=== PATIENT | male | born 1935 | race Caucasian/White ===

== ENCOUNTER 2021-11-21 12:45 | Emergency (ER) | payer MEDICARE, OTHER, SELFPAY ==
[2021-11-21] VITALS (7 sets, daily range): BP systolic 129–139; BP diastolic 60–71; PULSE 58–72; RESP 14–16; TEMP 36.5; O2SAT 97–100; BMI 22.2
--- NOTE | 2021-11-21 12:58 | DI.RAD.S_ITS ---
PROCEDURE: XR HIP W PEL IF DONE RT 2V INDICATIONS: fall with R hip pain TECHNIQUE: Two views of the right hip and AP view of the pelvis. COMPARISON: None. FINDINGS: Bones: Bilateral total hip arthroplasties. No fractures or dislocations. No suspicious bony lesions. The visualized pelvic ring appears intact. Soft tissues: No suspicious soft tissue calcifications or masses. IMPRESSION: No fracture demonstrated radiographically. Dictated by: Brandon Crandall M.D. on 11/21/2021 at 13:35 Approved by: Brandon Crandall M.D. on 11/21/2021 at 13:36
--- NOTE | 2021-11-21 12:59 | ED_ITS ---
HPI - Fall General Chief Complaint: Fall Stated Complaint: fell, can't put weight on right leg Time Seen by Provider: 11/21/21 12:52 History of Present Illness HPI Narrative: 86M nonsmoker with noncontributory medical history presents with family in the chief complaint of a ground level fall last night which resulted in a right hip injury. He states that he was walking outside in the dark with a flashlight in backing briefly disoriented and fell over onto his hip. He has some mild pain in his left knee as well but ambulating on his right leg causes significant pain. He denies any head neck or back pain. He has no chest pain or shortness of breath. Denies prodromal symptoms such as dizziness, weakness or lightheadedness. He has had no fever chills. His pain is worse with motion and ambulation and improves with rest. Review of Systems Review of Systems Narrative: GENERAL: Denies chills, fatigue, malaise, fever, sweats. HEENT: Denies sinus pain, ear pain, sore throat, difficulty swallowing, dizziness. RESPIRATORY: Denies dyspnea, cough, wheezing, hemoptysis, sputum. CARDIOVASCULAR: Denies chest pain, palpitations, orthopnea, edema, GASTROINTESTINAL: Denies nausea, vomiting, abdominal pain, diarrhea, constipation, melena. : Denies dysuria, frequency, incontinence, hematuria, urinary retention. MUSCULOSKELETAL: See HPI SKIN: Denies rash, skin lesions, or other NEUROLOGIC: Denies weakness, headache, numbness, change in speech, confusion, seizures, incoordination. PSYCHIATRIC: No concerning psychosocial issues. 12 point review of systems is negative except for those stated above Patient History Social History Smoking Status: Never smoker Exam Narrative Exam Narrative: GENERAL: [86 year old patient appears stated age. Well-developed patient, in mild distress. GCS 15 HEAD: Atraumatic. Normocephalic. EYES: Pupils equal round and reactive. Extraocular motions intact. No scleral icterus. No injection or drainage. ENT: Nose without bleeding, purulent drainage. Throat without erythema, tonsillar hypertrophy or exudate. Airway patent. NECK: Trachea midline. Non tender CARDIOVASCULAR: Regular rate and rhythm without murmurs, gallops, or rubs. RESPIRATORY: Clear to auscultation. Breath sounds equal bilaterally. No wheezes, rales, or rhonchi. GASTROINTESTINAL: Abdomen soft, non-tender, nondistended. EXTREMITIES: Pain on palpation of right lateral hip, worse with axial loading and internal and external rotation. No shortening or rotation, closed and neurovascularly intact. Minimal swelling and tenderness to palpation of left knee BACK: Nontender without deformity or crepitance. No flank tenderness. NEURO: AOx3. SKIN: No rash or erythema of visible areas Initial Vital Signs Initial Vital Signs: Vital Signs Temperature 97.7 F 11/21/21 13:01 Pulse Rate 64 11/21/21 13:01 Respiratory Rate 16 11/21/21 13:01 Blood Pressure 129/71 11/21/21 13:01 Pulse Oximetry 100 11/21/21 13:01 Course Orders Ordered: ED Orders 11/21/21 12:58 XR hip w pel if done RT 2V Stat 11/21/21 13:02 XR knee LT 3V Stat 11/21/21 13:40 CT pelvis wo con Stat Reevaluation(s) Reevaluation #1: Patient performs ambulation trial with a walker and does quite well upon completion of CT Vital Signs Vital signs: Vital Signs - 8 hr 11/21/21 13:01 11/21/21 13:35 11/21/21 14:02 Temperature 97.7 F Pulse Rate 64 60 72 Respiratory Rate 16 Blood Pressure 129/71 137/60 Pulse Oximetry 100 98 99 11/21/21 14:05 11/21/21 14:30 11/21/21 15:00 Temperature Pulse Rate 59 L 63 58 L Respiratory Rate Blood Pressure 137/60 Pulse Oximetry 98 98 99 MDM - Fall Imaging Data RIght Hip: Radiologist's Impression: [address] [address] XRay Report Signed Patient: Suman Sun MR#: [id number] : 1935 Acct:[id number] Age/Sex: 86 / M Date of Service: 11/21/21 Loc: ED Accession Number: [id number] ?? Procedure: XR hip w pel if done RT 2V Ordering Provider: Ezio Salazar D.O. PROCEDURE:? XR HIP W PEL IF DONE RT 2V ? INDICATIONS:? fall with R hip pain ? TECHNIQUE:? Two views of the right hip and AP view of the pelvis. ? COMPARISON:? None. ? FINDINGS:? ? Bones:? Bilateral total hip arthroplasties.? No fractures or dislocations.? No suspicious bony lesions.? The visualized pelvic ring appears intact.? ? Soft tissues:? No suspicious soft tissue calcifications or masses.? ? IMPRESSION:? No fracture demonstrated radiographically.? ? Dictated by: Brandon Crandall M.D. on 11/21/2021 at 13:35 ? ? Approved by: Brandon Crandall M.D. on 11/21/2021 at 13:36 ? Left Knee: Radiologist's Impression: [address] [address] XRay Report Signed Patient: Suman Sun MR#: [id number] : 1935 Acct:[id number] Age/Sex: 86 / M Date of Service: 11/21/21 Loc: ED Accession Number: [id number] ?? Procedure: XR knee LT 3V Ordering Provider: Ezio Salazar D.O. PROCEDURE:? XR KNEE LT 3V ? INDICATIONS:? fall with knee pain ? TECHNIQUE:? 3 views of the knee were acquired.? ? COMPARISON:? None. ? FINDINGS:? ? Bones:? No fractures or dislocations.? No suspicious bony lesions.? ? Soft tissues:? No joint effusion.? No suspicious soft tissue calcifications.? ? ? IMPRESSION:? No acute finding demonstrated. ? ? Dictated by: Brandon Crandall M.D. on 11/21/2021 at 13:35 ? ? Approved by: Brandon Crandall M.D. on 11/21/2021 at 13:35 ? CT scan - abdomen/pelvis: Radiologist's Impression: [address] [address] [address] Scan Report Signed Patient: Suman Sun MR#: [id number] : 1935 Acct:[id number] Age/Sex: 86 / M Date of Service: 11/21/21 Loc: ED Accession Number: [id number] ?? Procedure: CT pelvis wo con Ordering Provider: Ezio Salazar D.O. PROCEDURE:? CT PEL WO CON ? INDICATIONS:? fall with severe R Hip pain ? TECHNIQUE:? Noncontrast 3 mm axial sections acquired through the bony pelvis, with coronal and sagittal reformatting.? ? COMPARISON:? None. ? FINDINGS:? Streak artifact from bilateral total hip arthroplasties limits the evaluation.? Within this limitation, there is no definite evidence of fracture.? The hardware appears intact. ? ? IMPRESSION:? No acute finding. ? Dictated by: Brandon Crandall M.D. on 11/21/2021 at 14:44 ? ? Approved by: Brandon Crandall M.D. on 11/21/2021 at 14:46 ? MDM Narrative Medical decision making narrative: Patient had a mechanical ground level fall with isolated injuries to left knee and right hip. Exam of left knee is very reassuring x-ray shows no fracture dislocation or other injury. Right hip x-ray unremarkable, followed by CT which shows no fracture, dislocation, disruption of hardware. Patient's pain is well controlled and he is ambulating through the department with a walker. Return precautions given and questions answered to his apparent satisfaction Discharge Plan Departure Patient Disposition: Home Clinical Impression: Acute hip pain Instructions: How to Prevent Falls Activity Restrictions/Additional Instructions: *You have been diagnosed with [right hip pain. Your history and physical exam are very reassuring. X-ray and CT scan would suggest no fracture, dislocation or disruption of hardware. *What to do: *Please continue to take your regular medications as directed. [ ] New medication prescriptions sent to your pharmacy: [ ] [ ] New medication written as a paper prescription [ ] No new medications given *Please follow up with your primary care provider in 2-3 days, call for an appointment. Let them know you were seen in the Emergency Department and that we ask that you be seen in follow up. We will electronically transmit a record of today's note if your PCP is in our system *If you do not have a primary care provider please contact the [facility] Resource line at [phone]. They will ask some questions about your medical history and help get you set up with a doctor in the community. *Return to Emergency Department if you should have any new, worsening or concerning symptoms, such as [fever greater than 101 F, shaking chills, worsening pain, persistent vomiting or other bothersome symptoms] Referrals: Giuseppe Melendez MD [Primary Care Provider] -
--- NOTE | 2021-11-21 13:02 | DI.RAD.S_ITS ---
PROCEDURE: XR KNEE LT 3V INDICATIONS: fall with knee pain TECHNIQUE: 3 views of the knee were acquired. COMPARISON: None. FINDINGS: Bones: No fractures or dislocations. No suspicious bony lesions. Soft tissues: No joint effusion. No suspicious soft tissue calcifications. IMPRESSION: No acute finding demonstrated. Dictated by: Brandon Crandall M.D. on 11/21/2021 at 13:35 Approved by: Brandon Crandall M.D. on 11/21/2021 at 13:35
--- NOTE | 2021-11-21 13:40 | DI.CT.S_ITS ---
PROCEDURE: CT PEL WO CON INDICATIONS: fall with severe R Hip pain TECHNIQUE: Noncontrast 3 mm axial sections acquired through the bony pelvis, with coronal and sagittal reformatting. COMPARISON: None. FINDINGS: Streak artifact from bilateral total hip arthroplasties limits the evaluation. Within this limitation, there is no definite evidence of fracture. The hardware appears intact. IMPRESSION: No acute finding. Dictated by: Brandon Crandall M.D. on 11/21/2021 at 14:44 Approved by: Brandon Crandall M.D. on 11/21/2021 at 14:46
--- NOTE | 2021-11-21 15:19 | PC.NURSE ---
Patient ambulated aprox 100ft with 5/10 pain in his right hip at first and then after the trial he stated that his pain went down and he felt better after his walk.
== END 2021-11-21 15:45 | disposition home or self-care (01) ==
PROVIDERS: Emergency Provider Emergency Medicine; PCP Internal Medicine
DX: M25.551 Pain in right hip (principal); M25.562 Pain in left knee; W18.30XA Fall on same level, unspecified, initial encounter
CPT/HCPCS: 72192; 73502; 73562; 99284

== ENCOUNTER → 2022-07-09 14:24 | Outpatient (CLI) | payer MEDICARE, OTHER, SELFPAY ==
[2022-07-09 15:13] LABS: Add Manual Diff / Slide Review NO; Basophils Absolute Auto 100 /uL (0-100); Basophils Percent Auto 0.8 % (0-2); Eosinophils Absolute Auto 100 /uL (0-450); Hematocrit 35.8 % (41-53); Hemoglobin 11.8 g/dL (13.5-17.5); Lymphocytes Absolute Auto 2700 /uL (1100-4500); Lymphocytes Percent Auto 41.7 % (25-40); Mean Corpuscular HGB Conc 32.9 % (30-36); Mean Corpuscular Hemoglobin 30.2 PG (26-34); Mean Corpuscular Volume 91.7 fL (80-100); Monocytes Absolute Auto 400 /uL (0-900); Neutrophils Absolute Auto 3300 /uL (1500-7000); Neutrophils Percent Auto 50.5 % (50-75); Platelet Count 57 X10^3/uL (150-400); Red Blood Cell Count 3.91 X10^6/uL (4.5-5.9); Red Cell Distribution Width 16.3 % (11.6-14.8); White Blood Cell Count 6.5 X10^3/uL (4.5-11.0)
[2022-07-09 15:29] LABS: Alanine Aminotransferase 18 IU/L (<50); Albumin 3.6 g/dL (3.5-5.0); Albumin Globulin Ratio 0.9 (1.0-2.8); Alkaline Phosphatase 86 U/L (38-126); Aspartate Aminotransferase 26 IU/L (17-59); BUN Creatinine Ratio 29.1 (6-22); Bilirubin Total 0.5 mg/dL (0.2-1.3); Blood Urea Nitrogen 16 mg/dL (9-20); Calcium 8.6 mg/dL (8.4-10.2); Carbon Dioxide 30 mmol/L (22-32); Chloride 100 mmol/L (98-107); Estimated Glomerular Filt Rate > 60 mL/min (>60); Globulin 3.8 g/dL (1.7-4.1); Glucose 75 mg/dL (80-110); HEMOLYSIS < 15 (0-50); Potassium 3.9 mmol/L (3.4-5.1); Sodium 136 mmol/L (137-145); Total Protein 7.4 g/dL (6.3-8.2); Uric Acid 3.5 mg/dL (3.5-8.5)
[2022-07-10 05:17] LABS: IGA 65 mg/dL (61-437); IGG 1036 mg/dL (603-1613); IGM 1381 mg/dL (15-143)
[2022-07-13 14:35] LABS: Albumin 3.5 g/dL (2.9-4.4); Alpha-1-Globulin 0.2 g/dL (0.0-0.4); Alpha-2-Globulin 0.5 g/dL (0.4-1.0); Globulin Total 3.1 g/dL (2.2-3.9); Protein, Total 6.6 g/dL (6.0-8.5)
== END ==
PROVIDERS: PCP Internal Medicine; Referring Provider Internal Medicine Medical Oncology; Visit Provider Internal Medicine Medical Oncology
DX: C83.00 Small cell B-cell lymphoma, unspecified site (principal)
CPT/HCPCS: 36415; 80053; 82784; 84155; 84165; 84550; 85025

== ENCOUNTER → 2023-09-13 11:01 | Outpatient (CLI) | payer MEDICARE, OTHER, SELFPAY ==
[2023-09-13 20:22] LABS: Add Manual Diff / Slide Review NO; Basophils Absolute Auto 0 /uL (0-100); Basophils Percent Auto 0.7 % (0-2); Eosinophils Absolute Auto 400 /uL (0-450); Eosinophils Percent Auto 6.6 % (2-4); Hematocrit 38.5 % (41-53); Hemoglobin 13.2 g/dL (13.5-17.5); Lymphocytes Absolute Auto 1500 /uL (1100-4500); Lymphocytes Percent Auto 27.5 % (25-40); Mean Corpuscular HGB Conc 34.3 % (30-36); Mean Corpuscular Hemoglobin 30.5 PG (26-34); Monocytes Absolute Auto 400 /uL (0-900); Monocytes Percent Auto 7.1 % (3-14); Neutrophils Absolute Auto 3200 /uL (1500-7000); Neutrophils Percent Auto 58.1 % (50-75); Platelet Count 84 X10^3/uL (150-400); Red Blood Cell Count 4.33 X10^6/uL (4.5-5.9); Red Cell Distribution Width 12.9 % (11.6-14.8); White Blood Cell Count 5.6 X10^3/uL (4.5-11.0)
== END ==
PROVIDERS: PCP Family Medicine; Visit Provider Internal Medicine Medical Oncology
DX: C83.00 Small cell B-cell lymphoma, unspecified site (principal)
CPT/HCPCS: 85025

== ENCOUNTER → 2024-04-03 14:13 | Outpatient (CLI) | payer MEDICARE, OTHER, SELFPAY ==
[2024-04-03 21:03] LABS: Add Manual Diff / Slide Review NO; Basophils Absolute Auto 0 /uL (0-100); Basophils Percent Auto 0.6 % (0-2); Eosinophils Absolute Auto 200 /uL (0-450); Eosinophils Percent Auto 3.2 % (2-4); Hematocrit 41.8 % (41-53); Hemoglobin 14.2 g/dL (13.5-17.5); Lymphocytes Absolute Auto 2500 /uL (1100-4500); Lymphocytes Percent Auto 39.3 % (25-40); Mean Corpuscular HGB Conc 33.9 % (30-36); Mean Corpuscular Hemoglobin 30.4 PG (26-34); Mean Corpuscular Volume 89.5 fL (80-100); Monocytes Absolute Auto 400 /uL (0-900); Monocytes Percent Auto 6.2 % (3-14); Neutrophils Absolute Auto 3200 /uL (1500-7000); Neutrophils Percent Auto 50.7 % (50-75); Platelet Count 88 X10^3/uL (150-400); Red Blood Cell Count 4.67 X10^6/uL (4.5-5.9); Red Cell Distribution Width 13.6 % (11.6-14.8); White Blood Cell Count 6.3 X10^3/uL (4.5-11.0)
[2024-04-03 22:01] LABS: Alanine Aminotransferase 17 IU/L (<50); Albumin 4.1 g/dL (3.5-5.0); Albumin Globulin Ratio 1.6 (1.0-2.8); Alkaline Phosphatase 54 U/L (38-126); Aspartate Aminotransferase 70 IU/L (17-59); BUN Creatinine Ratio 26.7 (6-22); Bilirubin Total 0.8 mg/dL (0.2-1.3); Blood Urea Nitrogen 28 mg/dL (9-20); Carbon Dioxide 30 mmol/L (22-32); Chloride 106 mmol/L (98-107); Estimated Glomerular Filt Rate > 60 mL/min (>60); Globulin 2.5 g/dL (1.7-4.1); Glucose 158 mg/dL (80-110); HEMOLYSIS < 15 (0-50); Lactate Dehydrogenase 152 U/L (120-246); Sodium 142 mmol/L (137-145); Total Protein 6.6 g/dL (6.3-8.2); Uric Acid 5.8 mg/dL (3.5-8.5)
== END ==
PROVIDERS: PCP Family Medicine; Visit Provider Internal Medicine Medical Oncology
DX: C83.00 Small cell B-cell lymphoma, unspecified site (principal)
CPT/HCPCS: 80053; 83615; 84550; 85025

== ENCOUNTER → 2025-05-20 14:19 | Outpatient (CLI) | payer MEDICARE, OTHER, SELFPAY ==
--- NOTE | 2025-05-20 14:23 | DI.ECHO.S_ITS ---
[place] [facility]+ [facility] : : [address] : : [place] : : [id number] : : Phone: [phone] Echocardiogram Report + + :Name: PEDRO LAMBERT Study Date: 05/20/2025 Height: 67 in : :Hospital ReadingLocation: Weight: 157 lb : : Gender: Male BSA: 1.8 m2 : :: 1935 Age: 89 yrs BP: 159/87 mmHg: :Reason For Study: NONRHEUMATIC AORTIC VALVE DISORDER : :Ordering Physician: ANSELMO, : :LOCO Performed By: Brandon Schmitt : :Referring: UNSPECIFIED : + + Interpretation Summary 1) Mildly increased left ventricular thickness with normal size and low normal systolc function (EF 50-55%). Septal motion is consistent with post-operative state. 2) Normal right ventricular size and function. 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 No aortic regurgitation is present. 4) No prior Echo available for comparison. Procedure: A two-dimensional transthoracic echocardiogram with color flow and Doppler was performed. The study quality was technically adequate. There is no prior echocardiogram noted for this patient. The patient was in atrial fibrillation with heart rates between 42-83 bpm during the exam. Left Ventricle: The left ventricle is normal in size. Left ventricular wall thickness is mildly increased. There is no ventricular septal defect visualized. The ejection fraction is estimated to be 50-55%. Septal motion is consistent with post-operative state. Diastolic function could not be accurately assessed due to atrial fibrillation. Right Ventricle: The right ventricle is normal in size and function. Atria: The left atrial size is normal. Right atrial size is normal. There is no Doppler evidence for an interatrial shunt. Mitral Valve: There is mild mitral annular calcification. The mitral valve leaflets appear mildly thickened. The mitral valve leaflets are mildly calcified. There is trace mitral regurgitation. 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 The peak aortic velocity is 1.7 m/sec. The aortic valve mean gradient is 6.0 mmHg. No aortic regurgitation is present. Tricuspid Valve: The tricuspid valve leaflets are thin and pliable. There is a trace or physiologic amount of tricuspid regurgitation. Pulmonic Valve: The pulmonic valve is not well seen, but is grossly normal. There is no pulmonic valvular regurgitation. Great Vessels: The aortic root is normal size. The ascending aorta is at the upper limits of normal in size. The pulmonary artery is normal size. The IVC is of normal diameter and collapses greater than 50% with a sniff. This suggests a low right atrial pressure of 3 mm Hg. Pericardium/ Pleura There is no pericardial effusion. There is no pleural effusion. MMode/2D Measurements & Calculations LVIDd: 4.3 cm LVOT diam: 1.9 cm LVIDs: 3.3 cm Ao root diam: 3.6 cm FS: 23.5 % asc Aorta Diam: 3.8 cm EPSS: 0.89 cm Ao Arch Diam (Prox Trans): 1.6 cm IVSd: 1.1 cm LVPWd: 1.2 cm LV short. diameter/BSA (cm/m^2): 2.4 LV sys. diameter/BSA (cm/m^2): 1.8 LA A2 area: 27.5 cm2 RA long axis: 6.1 cm LA A4 area: 25.2 cm2 RA area: 18.9 cm2 LA length (vol): 5.8 cm RA vol: 50.0 ml LA vol: 102.2 ml RA : 27.4 ml/m2 LA vol index: 56.0 ml/m2 IVC diam: 1.9 cm RVD1 (basal): 3.8 cm RVD2 (mid): 3.3 cm TAPSE: 2.1 cm Doppler Measurements & Calculations Ao V2 max: 170.0 cm/sec LVOT Max Eric: 103.6 cm/sec Ao V2 mean: 117.1 cm/sec LV V1 max P.3 mmHg Ao max P.6 mmHg LV V1 VTI: 25.6 cm Ao mean P.0 mmHg PAPITO(I,D): 2.2 cm2 Ao V2 VTI: 33.8 cm PAPITO(V,D): 1.8 cm2 sev ratio: 0.76 PAPITO indexed to BSA (cm^2/m^2): 1.2 MV E max eric: 53.9 cm/sec TR max eric: 233.1 cm/sec MV A max eric: 86.5 cm/sec TR max P.7 mmHg MV E/A: 0.62 PA V2 max: 110.4 cm/sec Med Peak E' Eric: 7.1 cm/sec PA V2 mean: 73.2 cm/sec E/E' med: 7.6 PA mean P.5 mmHg Lat Peak E' Eric: 7.6 cm/sec PA pr(Accel): 56.7 mmHg E/E' lat: 7.0 E/e' average: 7.3 MV dec time: 0.25 sec SV(OT): 75.3 ml Reading Physician:06:42 PM
== END ==
LOC: ECHO 14:23
PROVIDERS: PCP Family Medicine; Referring Provider Internal Medicine Cardiovascular Disease; Visit Provider Internal Medicine Cardiovascular Disease
DX: I34.81 Nonrheumatic mitral (valve) annulus calcification (principal); I35.9 Nonrheumatic aortic valve disorder, unspecified; Z95.2 Presence of prosthetic heart valve
CPT/HCPCS: 93306